=== PATIENT | male | born 1970 | race Caucasian/White ===

== ENCOUNTER → 2020-06-16 11:52 | Outpatient (BNVA) | payer MEDICAID, SELFPAY | PROVIDERS: Visit Provider Family Medicine | DX: Z13.1 Encounter for screening for diabetes mellitus (principal); E78.2 Mixed hyperlipidemia; F41.1 Generalized anxiety disorder; F41.0 Panic disorder [episodic paroxysmal anxiety]; M26.609 Unspecified temporomandibular joint disorder, unspecified side; H90.6 Mixed conductive and sensorineural hearing loss, bilateral | CPT/HCPCS: 80053; 80061 ==